=== PATIENT | female | born 1970 | race Caucasian/White ===

== ENCOUNTER 2018-11-30 20:29 | Inpatient (IN) | payer BC ==
[2018-11-30] MEDS ORDERED: MEPERIDINE HCL 50 MG/ML IV PRN (21:08)
[2018-11-30] MEDS ORDERED: ONDANSETRON 4 MG/2 ML VIAL IV PRN (21:08)
[2018-11-30 21:40] VITALS: BMI 43.9
[2018-11-30] MEDS: MEPERIDINE HCL 25 MG/0.5 ML IV PRN ×2 (21:43→22:36)
[2018-11-30 21:47] LABS: Absolute Lymphocytes (CBC) 2.5 K/uL (0.7-4.9); Hematocrit 41.3 % (36.0-45.0); Lymphocytes % 19.8 % (15.3-44.8); MPV 9.1 fL (7.6-11.3); RBC Red Blood Cell Count 4.32 M/uL (3.86-4.86)
[2018-11-30 22:20] LABS: Albumin 3.9 g/dL (3.4-5.0); Bilirubin Total 0.3 mg/dL (0.2-1.0); Magnesium 2.2 mg/dL (1.8-2.4); Protein, Total 7.6 g/dL (6.4-8.2); Thyroid Stimulating Hormone 0.92 uIU/mL (0.360-3.740)
[2018-11-30 22:38] LABS: Urine Appearance CLEAR; Urine Bilirubin NEGATIVE (NEG); Urine Blood NEGATIVE (NEG); Urine Color YELLOW; Urine Glucose NEGATIVE (NEG); Urine Protein TRACE (NEG); Urine Urobilinogen 0.2 mg/dL (0.2-1.0)
[2018-11-30] MEDS: ALPRAZOLAM 1 MG TABLET PO SCH (23:30)
[2018-11-30 23:50] LABS: Urine Culture Reflex Order NOT NEEDED
[2018-11-30 23:51] LABS: Urine Bacteria <20 /HPF (<20); Urine Mucus SLIGHT /HPF (NONE SEEN); Urine RBC <5 /HPF (NONE SEEN)
[2018-12-01] MEDS: LEVOTHYROXINE SOD 0.088 MG TAB PO SCH (05:07)
[2018-12-01] MEDS ORDERED: INFLUENZA VACCINE (for 3y+) 0.5 ML DOSE IMVAC ONE ×2 (08:00→18:00)
[2018-12-01] MEDS: ALPRAZOLAM 1 MG TABLET PO SCH ×3 (08:46→21:36)
[2018-12-01] MEDS: PARoxetine HCl 10 MG TAB PO SCH (08:46)
[2018-12-01] MEDS: NA CHLORIDE 0.9% 1,000 ML IV SCH (08:47)
[2018-12-01] MEDS: ENOXAPARIN 40 MG/0.4 ML SQ SCH (08:53)
[2018-12-01] MEDS: FENTANYL CITR 100 MCG/2 ML IV PRN ×4 (08:58→21:36)
[2018-12-01] MEDS ORDERED: predniSONE 20 MG TAB PO SCH (09:00)
--- NOTE | 2018-12-01 11:20 | RAD REPORT ---
EXAM DESCRIPTION: Chest Pa And Lat (2 Views) CLINICAL HISTORY: 48 years Female lumbar radiculopathy COMPARISON: None TECHNIQUE: Two view study of the chest was performed. Patient is mildly rotated to the right. FINDINGS: Cardiac size is within normal limits. Central vessels are not increased. Prominent right p aratracheal soft tissues likely related to patient positioning. No effusions bilaterally. Mild perihilar and infrahilar airspace opacities. No consolidation. No pneumothorax. IMPRESSION: No evidence for congestive heart failure. Suspected perihilar and infrahilar atelectatic change. Electronically signed by: Ines West MD 11/30/2018 10:49 PM CDT Due to temporary technical issues with the PACS/Fluency reporting system, reports are being signed by the in house radiologist as a courtesy to ensure prompt reporting. The interpreting radiologist is f ully responsible for the content of the report.
--- NOTE | 2018-12-01 11:21 | RAD REPORT ---
EXAM DESCRIPTION: Spine Lumbar W obliques CLINICAL HISTORY: Lower back pain. COMPARISON: None. FINDINGS: No acute compression fracture is seen. There is normal alignment without subluxation. The disc spaces are preserved. Mild facet arthropathy throughout the lower lumbar spine. No evidence of s pondylolysis on the oblique views. The sacroiliac joints are intact. IMPRESSION: Mild degenerative changes. No acute fracture. Electronically signed by: Nelson Mendoza MD 11/30/2018 10:49 PM CDT Due to temporary technical issues with the PACS/Fluency reporting system, reports are being signed by the in house radiologist as a courtesy to ensure prompt reporting. The interpreting radiologist is f ully responsible for the content of the report.
--- NOTE | 2018-12-01 11:35 | RAD REPORT ---
EXAM DESCRIPTION: CT - Abdomen Pelvis W Contrast - 12/01/2018 11:12 am CLINICAL HISTORY: Abdominal pain. COMPARISON: None. TECHNIQUE: Computed axial tomography of the abdomen and pelvis was obtained. 100 cc Isovue-300 is ad ministered intravenously. Oral contrast was given. All CT scans are performed using dose optimization technique as appropriate and may include automated exposure control or mA/KV adjustment according to patient size. FINDINGS: Fatty liver Spleen, pancreas, adrenals and right kidney appear unremarkable. A 3 millimeter nonobstructing left r enal calculus There is no evidence of diverticulitis . Normal appendix A right inguinal hernia is not noted Laxity of the right lateral abdominal wall Mild stranding within the left central mesentery of the lower abdomen 12 millimeter lucency left ilium IMPRESSION: Mild stranding within the left central mesentery of the lower abdomen probably a mesente ritis 12 millimeter lucency left ilium is nonspecific. Followup CT pelvis in 3 months would be helpful to a ssess stability
--- NOTE | 2018-12-01 15:52 | RAD REPORT ---
EXAM DESCRIPTION: MRI - Spine Lumbar W/Wo Cont - 12/01/2018 3:27 pm CLINICAL HISTORY: Bilateral leg edema COMPARISON: 2010 MRI TECHNIQUE: Sagittal T1, T2 and STIR weighted sequences were obtained. Axial T1 and T2 sequences were obtained through the lumbar disc levels. 20 cc MultiHance administered intravenously FINDINGS: L1-2, L2-3, L3-4,L4-5 and L5-S1 levels are unremarkable. Epidural lipomatosis involves sacral spinal canal 16 millimeter lesion left superolateral aspect T12 vertebral body. A 24 millimeter a lesion right sac ral ala S1. 23 millimeter lesion left ilium near the SI joint. These have low signal on T1 weighted s equences and high signal on IR sequences. They all enhance . Mild paraspinal enhancement T12 Spinal stenosis is not noted. IMPRESSION: Enhancing lesions involving T12, right sacrum and left ilium may represent metastases .
[2018-12-01] MEDS: METHYLPREDNISOLONE 40 MG INJ IV SCH (21:36)
[2018-12-01] MEDS: GABAPENTIN 300 MG CAP PO SCH (21:36)
[2018-12-02] MEDS: METHYLPREDNISOLONE 40 MG INJ IV SCH ×5 (00:20→23:39)
[2018-12-02] MEDS: NA CHLORIDE 0.9% 1,000 ML IV SCH ×3 (00:23→18:55)
--- NOTE | 2018-12-02 05:42 | HP ---
Date of Admission: 11/30/2018 Chief Complaint: Pain. History Of Present Illness: Ms. John is a 48-year-old female patient who came into see me on 11/29, with following problems. She reported that she spent about 9 hours in the car about 2 weeks a go when she took the road trip and subsequently she started to have this pain in her bilateral thighs going from her groin to the knee area. Pain is lot worse in her left thigh than the right thigh are a. No fall. No injury. Pain; she describes as constant pain, worse when she is lying down or stand ing and better when she walks. Pain is constant. Pain was not getting any better so she went to [facility] on 11/28/2018 and she had a CAT scan of her lumbar spine done at that particular [facility], which showed moderate to severe degenerative joint disease with left greater than right facet joint degenerative changes of L5-S1 and she brought those results. At that particular emergency [facility], she was given fentanyl, steroid, and she was discharged to go home with a prescription for tramado l and prednisone. Patient was taking her medication as prescribed, and she was not getting any julia r, so she came into see me on 11/29/2018. I reviewed those available test results and started her on gabapentin and requested x-ray of her hip, which was done and it came back showing mild degenerative joint disease. Tramadol was not helping her pain, so I prescribed her Tylenol with codeine and yest alcides she called and reported that even Tylenol with codeine is not helping her pain and she was in e xcruciating pain, so her came to office to discuss with me about further plan of treatment an d I recommended her to be admitted to the hospital, and she was admitted directly last night. I saw her this morning and when I saw her, she reported that as of yesterday morning, she is having lot mor e intense pain in her right groin area. She continues to have her left thigh pain, the way she was d escribing, but the right groin pain area has gotten lot worse than it had been and that was much carlo er concern to her as of yesterday morning. Her ability to ambulate is impaired as she reported that she has hard time raising her right leg up and that was noticeable when she was sitting at the [facility] e and when I requested her to lie down, she was not able to lift her right leg to lie down and I had to assist her. Denies any tingling, numbness of feet. Allergies: LEXAPRO CAUSING NAUSEA AND VOMITING AND ZITHROMAX CAUSING SHORTNESS OF BREATH. SULFA CAU SING SWELLING. Medications: Tylenol with codeine, alprazolam 1 mg 3 times a day, hydroxyzine 25 mg 3 times a day as needed, levothyroxine 88 mcg p.o. daily, paroxetine 20 mg p.o. daily, gabapentin, which was 300 mg o nce a day for 3 days and then 300 mg twice a day, which was prescribed on 11/29/2018. Review of Systems: Musculoskeletal: As mentioned above. All other systems reviewed and negative. Past Medical History: Significant for obstructive sleep apnea, hypothyroidism, hyperlipidemia, leg e johnna, and anxiety. Past Surgical History: . Family History: Father with heart disease and mother with thyroid disease and eczema. Social History: Positive for smoking. Use of alcohol negative. Physical Examination: Vital Signs: Temperature 97.5, pulse 79, respiratory rate 16, blood pressure 103/55, oxygen saturati on 94%. Height 5 feet 3 inches, weight 248 pounds. General: Awake, alert, oriented, not in distress. HEENT: Head atraumatic, normocephalic. Conjunctivae nonerythematous. Sclerae white. Mouth, no thr ush or edema noted. Ears/Nose, no mass, lesion, discharge noted. Neck: Supple. No JVD, lymph nodes, bruit, thyromegaly noted. Lungs: Bilateral good equal air entry. Clear to auscultation. No rhonchi. No rales. Heart: Normal heart sounds, no murmur or gallop. Abdomen: Soft, bowel sounds normal. No guarding, rigidity, tenderness, mass, hepatosplenomegaly, dis tention, or bruit noted. Extremities: No leg edema. No calf tenderness. Skin: No rash, ulcer, cellulitis. Lymphatics: No lymph node enlargement in neck, supraclavicular, infraclavicular region. Neurological: Patient was awake, alert, oriented x3. She was not comfortable because of the pain, a nd she was not able to raise her right lower extremity against gravity. She was able to flex her bot h lower extremity at hip and knee joint, but straight leg raising was not possible with right lower e xtremity. She also had some tenderness in the right groin area. There was no evidence of any swelli ng in the groin. No redness, no mass, no evidence of hernia and her entire physical exam today was d one in presence of her nurse this morning in the hospital room. Chest: Unremarkable. External Genitalia: Deferred. Rectal: Deferred. Laboratory Data: White count 12.5, which could be very well due to her taking oral prednisone which she is taking 40 mg daily as prescribed from emergency room. Hemoglobin 14, platelets 285. Sediment ation rate 25. Sodium 142, potassium 4, chloride 105, bicarb 29, BUN 11, creatinine 0.93, glucose 84 . Liver function tests unremarkable. Procalcitonin less than 0.05, TSH 0.92. Urinalysis unremarkab le. Impression: 1.Lumbar radiculopathy. 2.Anxiety. 3.Hypothyroidism. 4.Obstructive sleep apnea. Plan: Admit patient to hospital for further evaluation and management of this problem. The patient is appropriate for inpatient and is expected to spend 2 midnights in hospital. After I saw her CAT s can of the abdomen with contrast was done and MRI of the lumbar spine with contrast was done. Result s reviewed and I did go back to hospital this evening to explain details about the test results to e patient. Patient was started on IV Demerol last night after she was admitted and Demerol did not h elp her, so when I saw her this morning, I discontinued Demerol and started her on IV fentanyl. This evening when I went back to see her, she reported that fentanyl is helping better than Demerol. She still has significant pain, but it is better than earlier this morning when I saw her. I did explai n to her about CAT scan of the abdomen findings. Clinically, she does not have any symptoms indicati ng any kind of mesenteric infection as reported on the CAT scan. Her MRI results reviewed we were co ncerned about metastatic bone lesions as reported in MRI and those details were discussed with her. The patient does not have any history of any malignancy, so I have informed her that upon discharge f [facility] the hospital, I would like for her to go to [facility] for further evaluation and man agement of this problem, and she is agreeable to do so in my office, we will refer her on outpatient basis. Her right groin and right leg pain could be very well muscular in nature because of her lumba r radiculopathy pain in the left leg that she might have twisted it in a way to cause this pain and d iscomfort and we did talk about this evening. I will go ahead and give her IV Solu-Medrol and discon tinue her oral prednisone. I will also start her back on her gabapentin that she was taking at home, and I will see her tomorrow for followup. REYNALDO/MIKAYLA Voice ID: [id number]
[2018-12-02] MEDS: LEVOTHYROXINE SOD 0.088 MG TAB PO SCH (06:27)
[2018-12-02] MEDS: ENOXAPARIN 40 MG/0.4 ML SQ SCH (08:36)
[2018-12-02] MEDS: ALPRAZOLAM 1 MG TABLET PO SCH ×3 (08:37→21:18)
[2018-12-02] MEDS: GABAPENTIN 300 MG CAP PO SCH ×2 (08:37→23:40)
[2018-12-02] MEDS: PARoxetine HCl 10 MG TAB PO SCH (08:38)
[2018-12-02] MEDS: FENTANYL CITR 100 MCG/2 ML IV PRN ×3 (13:23→23:40)
[2018-12-02 14:43] VITALS: O2SAT 95
--- NOTE | 2018-12-03 00:47 | PN ---
Date of Progress Note: 12/02/2018 Subjective: Patient was seen this morning for followup. She was sitting in the chair, appeared more comfortable than yesterday. She reported that her leg pain is better, especially the right leg pain . Right groin and right thigh pain has improved compared to yesterday evening when I saw her with co mbination of IV pain medication and IV steroid. She continues to have her left thigh pain, but that is better as well. Objective: Vital Signs: Reviewed. HEENT: Unremarkable. Lungs: Clear to auscultation. Heart: Sounds normal. Abdomen: Soft. Bowel sounds normal. No guarding, rigidity, tenderness, or distention. Extremities: No leg edema. Impression: 1.Lumbar radiculopathy. 2.Rule out metastatic cancer. 3.Anxiety. 4.Hypothyroidism. Plan: We will go ahead and continue current IV pain medications. We will see her tomorrow for follo wup and possible discharge to go home tomorrow depending on her condition. Details were discussed wi th her. REYNALDO/MODL Voice ID: [id number] Report ID: [id number]
[2018-12-03] MEDS: FENTANYL CITR 100 MCG/2 ML IV PRN ×3 (06:08→17:12)
[2018-12-03] MEDS: LEVOTHYROXINE SOD 0.088 MG TAB PO SCH (06:09)
[2018-12-03] MEDS: METHYLPREDNISOLONE 40 MG INJ IV SCH (06:09)
[2018-12-03] MEDS: HYDROCODONE/APAP 7.5/325 MG TAB PO SCH ×3 (08:48→15:36)
[2018-12-03] MEDS: GABAPENTIN 300 MG CAP PO SCH (08:48)
[2018-12-03] MEDS: ENOXAPARIN 40 MG/0.4 ML SQ SCH (08:48)
[2018-12-03] MEDS: ALPRAZOLAM 1 MG TABLET PO SCH ×2 (08:48→15:27)
[2018-12-03] MEDS: PARoxetine HCl 10 MG TAB PO SCH (08:49)
[2018-12-03] MEDS ORDERED: predniSONE 20 MG TAB PO SCH (09:00)
[2018-12-03] MEDS ORDERED: IBUPROFEN 400 MG TAB PO ONE (11:22)
[2018-12-03] MEDS: NA CHLORIDE 0.9% 1,000 ML IV SCH ×2 (13:20)
--- NOTE | 2018-12-03 14:23 | RAD REPORT ---
EXAM DESCRIPTION: RAD - Femur Left - 12/03/2018 9:36 am CLINICAL HISTORY: Left leg pain. FINDINGS: . Periosteal deposition is present about portions of the proximal and mid left femur. This is nonspecific but can be related pathology within the adjacent muscle or bone. A vague 2 centimeter lucency is present within the distal femur which may represent a metastasis. The bones are osteoporotic
--- NOTE | 2018-12-03 14:24 | RAD REPORT ---
EXAM DESCRIPTION: RAD - Knee Left 3 View - 12/03/2018 9:36 am CLINICAL HISTORY: Left knee pain FINDINGS: . Periosteal deposition is present about portions of the proximal and mid left femur. This is nonspecific but can be related pathology within the adjacent muscle or bone. A vague 2 centimeter lucency is present within the distal femur which may represent a metastasis. The bones are osteoporotic
--- NOTE | 2018-12-03 14:55 | RAD REPORT ---
EXAM DESCRIPTION: NM - Bone Imaging Whole Body - 12/03/2018 12:53 pm CLINICAL HISTORY: Abnormal radiologic exam. Leg pain COMPARISON: MRI lumbar spine December 01, 2018 TECHNIQUE: Approximately 25mCi Tc MDPwas administered intravenously. Anterior and posterior whole body images were obtained. FINDINGS: Increased radiotracer uptake involves the distal left femur. No abnormal radiotracer activity is seen within the T12, right sacrum or left ilium. Increased uptake involves the proximal humeri bilaterally IMPRESSION: Increased radiotracer uptake involving the distal left femur may represent a metastasis No abnormal radiotracer activity is visualized within T12, right sacrum and left ilium. Given the abn ormal enhancement seen on MRI these are suspicious for additional metastases or myeloma Increased uptake involves the proximal humeri bilaterally. Dedicated plain films of the shoulders rec ommended
[2018-12-03 16:35] VITALS: BP 118/63; TEMP 97.9
--- NOTE | 2018-12-04 04:26 | DS ---
Date of Discharge: 12/03/2018 Disposition: Discharged to go home. Physical Examination: HEENT: Unremarkable. Lungs: Clear to auscultation. Heart: Sounds normal. Abdomen: Soft. Bowel sounds normal. No guarding, rigidity, tenderness, or distention. Extremities: No leg edema. Discharge Medications And Instructions: 1.Continue all prior home medication, except do not take any tramadol or Tylenol with Codeine. 2.Finish taking the prednisone as prescribed prior to this admission. 3.Take gabapentin as prescribed prior to this admission. 4.Take [id number] medications for constipation. a.Senokot-S 2 tablets by mouth 2 times a day. b.MiraLAX 17 g powder mixed with 8-ounce water and drink it daily as needed for constipation. 5.Take Valier 7.5 mg 1 tablet by mouth every 6 hours for pain. 6.Take [id number]-xri-[id number] Motrin 200 mg, take 2 to 3 tablets with food 3 times a day. 7.Follow up at my office in 2 weeks. 8.My office will schedule appointment for her to go to [facility] as per my discussion with her. Laboratory And Investigation Done During This Hospitalization: White count 12.5, hemoglobin 14, plat elets 285. Sedimentation rate 25, elevated white count likely due to prednisone as patient was takin g that prior to this admission. Chemistry was unremarkable, except globulin 3.7 with normal range on globulin 2.3 to 3.5. Procalcitonin negative. TSH normal. Urinalysis negative. Chest x-ray, no ac mami cardiopulmonary changes. Suspected perihilar or infrahilar atelectatic changes. Lumbar spine x- ray, mild degenerative changes. No acute fracture. Lumbar spine MRI shows evidence of a 16 mm lesio n in left superolateral aspect of T12 vertebral body and 24 mm lesion right sacral ala at S1 level an d 23 mm lesion in left ilium near SI joint. CAT scan of the abdomen and pelvis was negative for any acute changes. No acute intraabdominal changes. Known obstructing 3 mm left renal calculi, 12 mm alba cency in left ilium was noted on that and mild stranding within left central mesentery may be due to mesentery inflammation. Femur and knee x-ray done today shows a small area of late lucency in the di stal femur and bone scan shows increased uptake in distal femur and slightly increased uptake involvi ng proximal humerus both sides. The area of abnormality noted on MRI of the lumbar spine did not feroz w any increased uptake on bone scan and all those details were discussed with radiologist as well. Hospital Course: A 48-year-old female patient admitted to the hospital with severe pain in her leg. Please see dictated H and P for more information. Patient was admitted to the hospital with lumbar radiculopathy and she mostly had pain in her left leg, but on the day of admission, she also had inte nse pain in her right groin area. This pain from right groin actually has resolved completely during this hospitalization and she continued to have pain in her left leg. Most of the pain is in the low er half to lower one-third of the left anterior thigh. No fall. No injury. Workup was done during this hospital admission as outlined above and we were concerned about metastatic cancer unknown prima ry at this point. I have discussed with her and her about all those test results and details and we have recommended her to have followup on outpatient basis at [facility] for further evaluati on and management of this problem. Patient understands and agrees with the recommendation and my off ice will initiate the appointment process for her. All the test results were discussed with her. Al l of her questions were answered. Her pain was very intense during this hospitalization, required mu ltiple doses of IV pain medication. She did not respond to Demerol, but responded well to IV fentany l and she was also given IV steroid. As of today, we have changed it to oral steroid. As of today, we started her on hydrocodone and gave her 1 dose of ibuprofen 600 mg and when I talked to her prior to discharge that was the best pain relief that she had since her admission. Final Diagnoses: 1.Metastatic cancer, unknown primary. 2.Anxiety. 3.Hypothyroidism. 4.Obstructive sleep apnea. REYNALDO/MODL Voice ID: [id number] Report ID: [id number]
== END 2018-12-03 18:25 | disposition home or self-care (01) | DRG 544 ==
LOC: 4TH 20:29
PROVIDERS: ADMIT Internal Medicine; ATTEND Internal Medicine
DX: C79.51 Secondary malignant neoplasm of bone (principal); M47.9 Spondylosis, unspecified; E03.9 Hypothyroidism, unspecified; G47.33 Obstructive sleep apnea (adult) (pediatric); F41.9 Anxiety disorder, unspecified
CPT/HCPCS: 36415; 71046; 72110; 72158; 74177; 78306; 80053; 81001; 83735; 84145; 84443; 85025; 85652; 90471; A9503; A9577; J1650; J2175; J2920; J3010; J7030; J7512; Q2035; Q9967

== ENCOUNTER 2019-02-22 18:14 | Emergency (ER) | payer BC ==
--- OUTSIDE RECORDS SUMMARY | 2019-02-22 18:17 | XMS REPORT ---
:1970 [facility] Address [address] [place] [address] Care Team Providers Name Role Phone SHAAN GUEVARA Unavailable Unavailable Problems This patient has no known problems. Allergies, Adverse Reactions, Alerts This patient has no known allergies or adverse reactions. Medications This patient has no known medications. Results Test Description Test Time Test Comments Text Results Atomic Results Result Comments JERROD KRISHNAN, 2018-12-20 17:49:00 Addendum BeginsREPORT [facility], WITH STATUS:A MRI of the left hip with and without contrast TECHNIQUE: Multiplanar multisequence MRI of the left hip was performed with and without intravenous gadolinium administration. Signed: Javid Crabtree Verified Date/Time: 12/20/2018 17:49:57 Reading Location: [address] Ortho Consult Reading RoomAddendum EndsFINAL REPORT MRI left hip without contrast. INDICATION: Lower leg pain, stress fracture suspected, initial exam COMPARISON: CT dated December 13, 2018 TECHNIQUE: Multiplanar multisequence MRI examination of the left hip was performed without intravenous gadolinium. FINDINGS: Multiple T1 hypointense, T2 hyperintense and enhancing lesions are seen in the bony pelvis, and imaged portion of both femurs, compatible with malignancy. One of the larger lesions is located in the right femoral head anteriorly. No acute fracture or dislocation is identified. No displaced labral tear is seen. There is trace right-sided hip joint effusion. SI joints are unremarkable. Symphysis pubis is congruent. The iliopsoas, hamstring and gluteal tendons are intact. Within the pelvis, bladder, uterus and adnexa appear unremarkable. No mass or lymphadenopathy identified. IMPRESSION: Multifocal marrow replacing, enhancing lesions in the bony pelvis, and bilateral femurs, differential considerations include metastasis, lymphoma or myeloma. Signed: Javid Crabtreedaphneyort Verified Date/Time: 12/14/2018 16:21:36 Reading Location: [facility] B1 [id number] Ortho Consult Reading Room , KNEE, 3 VIEWS, 2018-12-15 14:25:00 Reason for FINAL REPORT PATIENT ID: LEFT exam:->left knee [id number] TECHNIQUE: painShould this be Four views of the left performed at the knee and two views of bedside?->No the right tibia and fibula HISTORY: left knee pain. COMPARISON: None. FINDINGS:No acute fractures nor dislocations. Joint spaces are within normal limits.Enthesopathy at the the quadriceps insertion, and partially visualized enthesopathy at the heel and talus. IMPRESSION:No acute osseous abnormalities.Consider bone scan if there is a desire to identify bone lesions. Signed: Jean-Claude Quiroz MDRdaphneyort Verified Date/Time: 12/15/2018 14:25:29 Reading Location: [facility] Radiology Reading Room , LEG, TIBIA 2018-12-15 14:25:00 Reason for FINAL REPORT PATIENT ID: exam:->leg [id number] TECHNIQUE: painShould this be Four views of the left performed at the knee and two views of bedside?->No the right tibia and fibula HISTORY: left knee pain. COMPARISON: None. FINDINGS:No acute fractures nor dislocations. Joint spaces are within normal limits.Enthesopathy at the the quadriceps insertion, and partially visualized enthesopathy at the heel and talus. IMPRESSION:No acute osseous abnormalities.Consider bone scan if there is a desire to identify bone lesions. Signed: Jean-Claude Quiroz MDRdaphneyort Verified Date/Time: 12/15/2018 14:25:29 Reading Location: [facility] Radiology Reading Room , EXTREMITY, LOWER 2018-12-15 07:31:00 FINAL REPORT PATIENT ID: WITHOUT CONTRAST, [id number] CT pelvis RIGHT without contrast; CT right femur without contrast HISTORY: Pathologic fracture, multiple lytic bone lesions COMPARISON: CT pelvis 12/13/2018 Technique: serial axial imaging was performed without intravenous contrast as per departmental protocol. Multiplanar images are reconstructed and reviewed when indicated. This CT examination is performed using one or more of the following dose reduction techniques: Automated exposure control, adjustment of the mA and /or kV according to patient size, and/or use of iterative reconstruction technique. FINDINGS: The visualized bowel loops within the pelvis appear normal in caliber. Unremarkable appearance of the uterus and ovaries. The urinary bladder demonstrates no definite wall thickening or intraluminal mass. No pelvic free fluid, lymphadenopathy, or hematoma is seen. Multifocal lytic bone lesions are again seen involving the right femoral head, right sacrum, and left iliac wing, unchanged in appearance. Lesions within the right femoral head and left iliac wing are associated with focal cortical erosion. No pathologic fracture is seen. There is a subtle lucent lesion involving the left initial tuberosity measuring 8 mm in size which is retrospectively unchanged from the study of 12/13/2018. No additional lytic lesion is seen within the remaining portions of the right femur. There is mild stranding of subcutaneous fat within the right thigh, without definitive soft tissue mass or fluid collection. IMPRESSION: Multifocal lytic bone lesions within the pelvis, without significant interval change from yesterday's study. Signed: Simone Garcia MDReport Verified Date/Time: 12/15/2018 07:31:19 Reading Location: [facility] Diagnostic Imaging Reading Room - [place] [address] , PELVIS, WO 2018-12-15 07:31:00 RIGHT FEMUR FINAL REPORT PATIENT ID: CONTRAST INCLUDING HIP AND [id number] CT pelvis ALL THE WAY TO THE without contrast; CT KNEE right femur without contrast HISTORY: Pathologic fracture, multiple lytic bone lesions COMPARISON: CT pelvis 12/13/2018 Technique: serial axial imaging was performed without intravenous contrast as per departmental protocol. Multiplanar images are reconstructed and reviewed when indicated. This CT examination is performed using one or more of the following dose reduction techniques: Automated exposure control, adjustment of the mA and /or kV according to patient size, and/or use of iterative reconstruction technique. FINDINGS: The visualized bowel loops within the pelvis appear normal in caliber. Unremarkable appearance of the uterus and ovaries. The urinary bladder demonstrates no definite wall thickening or intraluminal mass. No pelvic free fluid, lymphadenopathy, or hematoma is seen. Multifocal lytic bone lesions are again seen involving the right femoral head, right sacrum, and left iliac wing, unchanged in appearance. Lesions within the right femoral head and left iliac wing are associated with focal cortical erosion. No pathologic fracture is seen. There is a subtle lucent lesion involving the left initial tuberosity measuring 8 mm in size which is retrospectively unchanged from the study of 12/13/2018. No additional lytic lesion is seen within the remaining portions of the right femur. There is mild stranding of subcutaneous fat within the right thigh, without definitive soft tissue mass or fluid collection. IMPRESSION: Multifocal lytic bone lesions within the pelvis, without significant interval change from yesterday's study. Signed: Simone Garcia MDReport Verified Date/Time: 12/15/2018 07:31:19 Reading Location: [facility] Diagnostic Imaging Reading Room - [place] [address] C METABOLIC PANEL 2018-12-15 05:42:00 Test Item Value Reference Range Comments SODIUM (BEAKER) (test 140 meq/L 135-148 abrb=294) POTASSIUM (BEAKER) (test 4.4 meq/L 3.6-5.5 gzmh=837) CHLORIDE (BEAKER) (test 101 meq/L 98-106 kqvh=828) CO2 (BEAKER) (test igtv=676) 27 meq/L 20-29 BLOOD UREA NITROGEN (BEAKER) 16 mg/dL 10-26 (test dlvw=752) CREATININE (BEAKER) (test 0.77 mg/dL 0.50-1.20 pwuu=746) GLUCOSE RANDOM (BEAKER) 141 mg/dL 70-110 (test uzdp=972) CALCIUM (BEAKER) (test 9.5 mg/dL 8.5-10.5 nrdr=222) EGFR (BEAKER) (test 79 mL/min/1.73 sq m ESTIMATED GFR IS NOT cndg=8315) ACCURATE CREATININE CLEARANCE IN PREDICTING GLOMERULAR FILTRATION RATE. ESTIMATED GFR IS NOT APPLICABLE FOR DIALYSIS PATIENTS. CBC W/PLT COUNT & AUTO [id number] 05:42:00 Test Item Value Reference Range Comments WHITE BLOOD CELL COUNT (BEAKER) (test yxqd=439) 14.3 K/ L 4.0-10.0 RED BLOOD CELL COUNT (BEAKER) (test ezrt=607) 4.38 M/ L 4.00-5.00 HEMOGLOBIN (BEAKER) (test gqjx=584) 14.2 GM/DL 12.0-15.5 HEMATOCRIT (BEAKER) (test qyjs=991) 41.6 % 36.0-46.0 MEAN CORPUSCULAR VOLUME (BEAKER) (test hfyz=553) 95.0 fL 82.0-99.0 MEAN CORPUSCULAR HEMOGLOBIN (BEAKER) (test 32.4 pg 27.0-33.0 muar=764) MEAN CORPUSCULAR HEMOGLOBIN CONC (BEAKER) (test 34.1 GM/DL 32.0-36.0 foci=510) RED CELL DISTRIBUTION WIDTH (BEAKER) (test 13.3 % 12.0-15.0 rurt=064) PLATELET COUNT (BEAKER) (test newl=060) 251 K/CU MM 150-430 MEAN PLATELET VOLUME (BEAKER) (test eqvh=655) 10.6 fL 6.0-11.5 NUCLEATED RED BLOOD CELLS (BEAKER) (test 0 /100 WBC 0-0 khxs=757) NEUTROPHILS RELATIVE PERCENT (BEAKER) (test 86 % liac=678) LYMPHOCYTES RELATIVE PERCENT (BEAKER) (test 9 % ogdj=526) MONOCYTES RELATIVE PERCENT (BEAKER) (test 4 % bnpm=569) EOSINOPHILS RELATIVE PERCENT (BEAKER) (test 0 % vsbq=014) BASOPHILS RELATIVE PERCENT (BEAKER) (test 0 % aomr=454) NEUTROPHILS ABSOLUTE COUNT (BEAKER) (test 12.30 K/ L 1.80-8.00 zrre=552) LYMPHOCYTES ABSOLUTE COUNT (BEAKER) (test 1.26 K/ L 1.48-4.50 dncr=672) MONOCYTES ABSOLUTE COUNT (BEAKER) (test 0.62 K/ L 0.00-1.30 gauf=431) EOSINOPHILS ABSOLUTE COUNT (BEAKER) (test 0.01 K/ L 0.00-0.50 olrg=021) BASOPHILS ABSOLUTE COUNT (BEAKER) (test 0.01 K/ L 0.00-0.20 ywrv=163) IMMATURE GRANULOCYTES-RELATIVE PERCENT (BEAKER) 1 % 0-0 (test krzn=3813) PROTHROMBIN [id number] 05:36:00 Test Item Value Reference Range Comments PROTIME (BEAKER) (test evhb=298) 10.5 sec 9.3-12.0 INR (BEAKER) (test vypo=663) 1.0 <=5.9 RECOMMENDED COUMADIN/WARFARIN INR THERAPY RANGESSTANDARD DOSE: 2.0 - 3.0 Includes: PROPHYLAXIS forvenous thrombosis, systemic embolization; TREATMENT for venous thrombosis and/or pulmonary embolus.HIGH RISK: Target INR is 2.5-3.5 for patients with mechanical heart valves.Final Information (Auto Output)Final Information (Auto Output)[id number] 05:36:00 Test Item Value Reference Range Comments PARTIAL THROMBOPLASTIN TIME (BEAKER) (test 26.0 sec 23.0-35.0 aiql=301) Final Information (Auto Output)[id number] 09:07:00 Test Item Value Reference Range Comments PROTIME (BEAKER) (test jmci=992) 10.3 sec 9.3-12.0 INR (BEAKER) (test chrx=062) 0.9 <=5.9 PARTIAL THROMBOPLASTIN TIME (BEAKER) (test 24.5 sec 23.0-35.0 vnju=435) RECOMMENDED COUMADIN/WARFARIN INR THERAPY RANGESSTANDARD DOSE: 2.0 - 3.0 Includes: PROPHYLAXIS forvenous thrombosis, systemic embolization; TREATMENT for venous thrombosis and/or pulmonary embolus.HIGH RISK: Target INR is 2.5-3.5 for patients with mechanical heart valves.Final Information (Auto Output)Final Information (Auto Output)Final Information (Auto Output)CT, EXTREMITY, LOWER, WITH CONTRAST, [id number] 07:31:00FINAL REPORT CT pelvis with contrast; CT left thigh with contrast HISTORY: Pain, lytic lesion COMPARISON: Pelvis and left femur x-rays of same date Technique: serial axial imaging was performed following the administration of intravenous contrast as per departmental protocol. Multiplanar images are reconstructed and reviewed when indicated. This CT examination is performed using one or more of the following dose reduction techniques: Automated exposure control, adjustment of the mA and /or kV according to patient size, and/or use of iterative reconstruction technique. FINDINGS: The visualized bowel loops appear normal in caliber. Unremarkable appearance of the uterus and adnexa. The urinary bladder demonstrates no definite wall thickening or intraluminal mass. No pelvic lymphadenopathy, hematoma, or free fluid is seen. Within the pelvis, lytic lesions are noted involving the left iliac wing, right sacrum, and anterior aspect of right femoral head. The largest of these lesions measures 2.5 cm in size is seen within the anterior right femoral head. Lesions within the left iliac wing and right femoral head are associated with cortical indistinctness. The right femoral head lesion is at risk for pathologic fracture. Within the left thigh and visualized portions of the left leg, there is mild superficial soft tissue edema, without organized fluid collection. Within the distal left femoral diaphysis, there is an ill-defined lytic lesion measuring approximately 2.1 cm insize. This is associated with a focus of cortical breakthrough and thin periosteal reaction. No additional lytic or blastic lesion is identified. IMPRESSION: Multifocal lytic lesions which involve the right femoral head, right sacrum, left iliac wing, and left distal femoral diaphysis. The lesions within the right femoral head and left distal femoral diaphysis are at risk for pathologic fracture. Overall, the findings are concerning for myeloma, metastasis, or lymphoma. Signed: Simone Garcia MDReport Verified Date/Time: 12/14/2018 07:31:44 Reading Location: [facility] Diagnostic Imaging Reading Room - [place] [id number] 07 :31 AMCT, PELVIS, W [id number] 07:31:00FINAL REPORT CT pelvis with contrast; CT left thigh with contrast HISTORY: Pain, lytic lesion COMPARISON: Pelvis and left femur x-rays of same date Technique: serial axial imaging was performed following the administration of intravenous contrast as per departmental protocol. Multiplanar images are reconstructed and reviewed when indicated. This CT examination is performed using one or more of the following dose reduction techniques: Automated exposure control, adjustment of the mA and /or kV according to patient size, and/or use of iterative reconstruction technique. FINDINGS: The visualized bowel loops appear normal in caliber. Unremarkable appearance of the uterus and adnexa. The urinary bladder demonstrates no definite wall thickening or intraluminal mass. No pelvic lymphadenopathy, hematoma, or free fluid is seen. Within the pelvis, lytic lesions are noted involving the left iliac wing, right sacrum, and anterior aspect of right femoral head. The largest of these lesions measures 2.5 cm in size is seen within the anterior right femoral head. Lesions within the left iliac wing and right femoral head are associated with cortical indistinctness. The right femoral head lesion is at risk for pathologic fracture. Within the left thigh and visualized portions of the left leg, there is mild superficial soft tissue edema, without organized fluid collection. Within the distal left femoral diaphysis, there is an ill-defined lytic lesion measuring approximately 2.1 cm insize. This is associated with a focus of cortical breakthrough and thin periosteal reaction. No additional lytic or blastic lesion is identified. IMPRESSION: Multifocal lytic lesions which involve the right femoral head, right sacrum, left iliac wing, and left distal femoral diaphysis. The lesions within the right femoral head and left distal femoral diaphysis are at risk for pathologic fracture. Overall, the findings are concerning for myeloma, metastasis, or lymphoma. Signed: Simone Garcia Verified Date/Time: 12/14/2018 07:31:44 Reading Location: [facility] Diagnostic Imaging Reading Room -[place] [address] RAD, PELVIS, 1 OR 2 [id number] 16: 05:00Reason for exam:->painFINAL REPORT INDICATION: Pelvis and left femur pain. COMPARISON: None. TECHNIQUE: Pelvis radiograph one view.Left femur radiograph two views. FINDINGS / IMPRESSION:There is an oldfracture or hyperostosis of the superolateral left acetabulum. There is no evidence of an acute fracture. Degenerative spurring at the greater trochanter is noted. Contrast in the ureters and bladder is noted. Signed: Sruthi Arango Verified Date/Time: 12/13/2018 16:05:09 Reading Location: [facility] Mammo Reading Room RAD, FEMUR, MIN. 2 VIEWS, [id number] 16:05: 00Reason for exam:->left leg painFINAL REPORT INDICATION:Pelvis and left femur pain. COMPARISON: None. TECHNIQUE: Pelvis radiograph one view.Left femur radiograph two views. FINDINGS / IMPRESSION: There is an oldfracture or hyperostosis of the superolateral left acetabulum. There is no evidence of an acute fracture. Degenerative spurring at the greater trochanter is noted. Contrast in the ureters and bladder is noted. Signed: Sruthi Arango MDReport Verified Date/Time: 12/13/2018 16:05:09 Reading Location:[facility] METABOLIC [id number] 05:58:00 Test Item Value Reference Range Comments SODIUM (BEAKER) (test 141 meq/L 135-148 pzkw=680) POTASSIUM (BEAKER) (test 4.0 meq/L 3.6-5.5 npbe=779) CHLORIDE (BEAKER) (test 104 meq/L 98-106 fgut=016) CO2 (BEAKER) (test 26 meq/L 20-29 fkhl=257) BLOOD UREA NITROGEN 19 mg/dL 10-26 (BEAKER) (test xtrn=114) CREATININE (BEAKER) (test 0.81 mg/dL 0.50-1.20 oepy=086) GLUCOSE RANDOM (BEAKER) 90 mg/dL 70-110 (test zxmh=919) CALCIUM (BEAKER) (test 9.4 mg/dL 8.5-10.5 tnss=343) EGFR (BEAKER) (test 75 mL/min/1.73 sq m ESTIMATED GFR IS NOT qmzt=9006) ACCURATE CREATININE CLEARANCE IN PREDICTING GLOMERULAR FILTRATION RATE. ESTIMATED GFR IS NOT APPLICABLE FOR DIALYSIS PATIENTS. CBC W/PLT COUNT & AUTO [id number] 05:35:00 Test Item Value Reference Range Comments WHITE BLOOD CELL COUNT (BEAKER) (test ezvg=709) 14.9 K/ L 4.0-10.0 RED BLOOD CELL COUNT (BEAKER) (test lowd=621) 4.15 M/ L 4.00-5.00 HEMOGLOBIN (BEAKER) (test fklg=694) 13.4 GM/DL 12.0-15.5 HEMATOCRIT (BEAKER) (test ewfz=718) 40.0 % 36.0-46.0 MEAN CORPUSCULAR VOLUME (BEAKER) (test smzu=117) 96.4 fL 82.0-99.0 MEAN CORPUSCULAR HEMOGLOBIN (BEAKER) (test 32.3 pg 27.0-33.0 jtjy=978) MEAN CORPUSCULAR HEMOGLOBIN CONC (BEAKER) (test 33.5 GM/DL 32.0-36.0 zulr=237) RED CELL DISTRIBUTION WIDTH (BEAKER) (test 13.5 % 12.0-15.0 dahd=547) PLATELET COUNT (BEAKER) (test kkgo=373) 275 K/CU MM 150-430 MEAN PLATELET VOLUME (BEAKER) (test ooar=462) 10.5 fL 6.0-11.5 NUCLEATED RED BLOOD CELLS (BEAKER) (test 0 /100 WBC 0-0 bugc=063) NEUTROPHILS RELATIVE PERCENT (BEAKER) (test 67 % dhqq=540) LYMPHOCYTES RELATIVE PERCENT (BEAKER) (test 24 % vmvd=280) MONOCYTES RELATIVE PERCENT (BEAKER) (test 8 % huie=948) EOSINOPHILS RELATIVE PERCENT (BEAKER) (test 1 % lbxu=318) BASOPHILS RELATIVE PERCENT (BEAKER) (test 0 % iyyw=931) NEUTROPHILS ABSOLUTE COUNT (BEAKER) (test 9.94 K/ L 1.80-8.00 nzra=104) LYMPHOCYTES ABSOLUTE COUNT (BEAKER) (test 3.63 K/ L 1.48-4.50 xjsh=132) MONOCYTES ABSOLUTE COUNT (BEAKER) (test 1.16 K/ L 0.00-1.30 prdh=952) EOSINOPHILS ABSOLUTE COUNT (BEAKER) (test 0.07 K/ L 0.00-0.50 ykfe=846) BASOPHILS ABSOLUTE COUNT (BEAKER) (test 0.03 K/ L 0.00-0.20 tbex=649) IMMATURE GRANULOCYTES-RELATIVE PERCENT (BEAKER) 1 % 0-0 (test pisj=8004) SCREEN, [id number] 16:05:00 Test Item Value Reference Range Comments TEST URINE (BEAKER) (test vobg=457) Negative COMPREHENSIVE METABOLIC [id number] 11:42:00 Test Item Value Reference Range Comments TOTAL PROTEIN (BEAKER) 7.7 gm/dL 6.0-8.5 (test bnda=307) ALBUMIN (BEAKER) (test 4.5 g/dL 3.5-5.0 yfkc=2327) ALKALINE PHOSPHATASE 79 U/L 30-115 (BEAKER) (test qfvv=886) BILIRUBIN TOTAL (BEAKER) 0.4 mg/dL 0.1-1.2 (test epmw=971) SODIUM (BEAKER) (test 142 meq/L 135-148 fhqx=258) POTASSIUM (BEAKER) (test 4.9 meq/L 3.6-5.5 zvhm=051) CHLORIDE (BEAKER) (test 102 meq/L 98-106 juqa=434) CO2 (BEAKER) (test 29 meq/L 20-29 dlxb=616) BLOOD UREA NITROGEN 14 mg/dL 10-26 (BEAKER) (test twry=971) CREATININE (BEAKER) (test 0.88 mg/dL 0.50-1.20 dvqj=329) GLUCOSE RANDOM (BEAKER) 125 mg/dL 70-110 (test jnjy=246) CALCIUM (BEAKER) (test 10.4 mg/dL 8.5-10.5 bvyb=072) AST (SGOT) (BEAKER) (test 18 U/L 5-40 mqre=709) ALT (SGPT) (BEAKER) (test 45 U/L 5-50 dmpj=207) EGFR (BEAKER) (test 68 mL/min/1.73 sq m ESTIMATED GFR IS NOT tsgr=6496) ACCURATE CREATININE CLEARANCE IN PREDICTING GLOMERULAR FILTRATION RATE. ESTIMATED GFR IS NOT APPLICABLE FOR DIALYSIS PATIENTS. CREATINE KINASE (CK)2018-12-12 11:42:00 Test Item Value Reference Range Comments CREATINE KINASE TOTAL (BEAKER) (test uxvm=505) 37 U/L 25-235 CBC W/PLT COUNT & AUTO [id number] 11:25:00 Test Item Value Reference Range Comments WHITE BLOOD CELL COUNT (BEAKER) (test arce=385) 15.7 K/ L 4.0-10.0 RED BLOOD CELL COUNT (BEAKER) (test bseo=513) 4.58 M/ L 4.00-5.00 HEMOGLOBIN (BEAKER) (test smwa=888) 14.9 GM/DL 12.0-15.5 HEMATOCRIT (BEAKER) (test swcz=296) 43.8 % 36.0-46.0 MEAN CORPUSCULAR VOLUME (BEAKER) (test mkcc=275) 95.6 fL 82.0-99.0 MEAN CORPUSCULAR HEMOGLOBIN (BEAKER) (test 32.5 pg 27.0-33.0 xalq=481) MEAN CORPUSCULAR HEMOGLOBIN CONC (BEAKER) (test 34.0 GM/DL 32.0-36.0 ahul=502) RED CELL DISTRIBUTION WIDTH (BEAKER) (test 13.4 % 12.0-15.0 phkq=862) PLATELET COUNT (BEAKER) (test mdwg=666) 273 K/CU MM 150-430 MEAN PLATELET VOLUME (BEAKER) (test vjsk=471) 10.2 fL 6.0-11.5 NUCLEATED RED BLOOD CELLS (BEAKER) (test 0 /100 WBC 0-0 zstr=488) NEUTROPHILS RELATIVE PERCENT (BEAKER) (test 88 % ifwb=894) LYMPHOCYTES RELATIVE PERCENT (BEAKER) (test 7 % duuq=905) MONOCYTES RELATIVE PERCENT (BEAKER) (test 3 % tsjt=648) EOSINOPHILS RELATIVE PERCENT (BEAKER) (test 0 % piqr=201) BASOPHILS RELATIVE PERCENT (BEAKER) (test 0 % byyp=917) NEUTROPHILS ABSOLUTE COUNT (BEAKER) (test 13.83 K/ L 1.80-8.00 eoap=825) LYMPHOCYTES ABSOLUTE COUNT (BEAKER) (test 1.13 K/ L 1.48-4.50 apkb=536) MONOCYTES ABSOLUTE COUNT (BEAKER) (test 0.54 K/ L 0.00-1.30 pcum=557) EOSINOPHILS ABSOLUTE COUNT (BEAKER) (test 0.01 K/ L 0.00-0.50 enzl=905) BASOPHILS ABSOLUTE COUNT (BEAKER) (test 0.03 K/ L 0.00-0.20 lxgi=401) IMMATURE GRANULOCYTES-RELATIVE PERCENT (BEAKER) 1 % 0-0 (test sszm=6913)
[2019-02-22] MEDS ORDERED: ONDANSETRON 4 MG/2 ML VIAL ONE (19:50)
[2019-02-22] MEDS ORDERED: NA CHLORIDE 0.9% 1,000 ML ONE ×3 (19:50→23:46)
[2019-02-22] MEDS ORDERED: FENTANYL CITR 100 MCG/2 ML ONE ×3 (19:50→23:56)
[2019-02-22 20:32] LABS: Absolute Lymphocytes (CBC) 0.9 K/uL (0.7-4.9); Basophils % 0.6 % (0-1.3); Lymphocytes % 6.4 % (15.3-44.8); MPV 8.3 fL (7.6-11.3)
--- NOTE | 2019-02-22 21:03 | RAD REPORT ---
EXAM DESCRIPTION: RAD - Chest Single View - 02/22/2019 7:48 pm CLINICAL HISTORY: Left leg pain, altered mental status, shortness of breath COMPARISON: November 30 TECHNIQUE: AP portable chest image was obtained 1945 hours . FINDINGS: Right lung field is clear. Left pleural effusion with atelectasis present. Left base infil trate could be masked. Heart and vasculature are normal. No failure or volume overload. No pneumothor ax. No acute bony abnormality seen. No acute aortic findings suspected. IMPRESSION: Small left pleural effusion with left base atelectasis.
[2019-02-22 21:09] LABS: Protime INR 1.73
[2019-02-22 21:25] LABS: ALT/SGPT 29 U/L (12-78); AST/SGOT 36 U/L (15-37); Albumin 2.2 g/dL (3.4-5.0); Alkaline Phosphatase 137 U/L (45-117); BUN Blood Urea Nitrogen 18 mg/dL (7-18); Bicarbonate 30 mmol/L (21-32); Bilirubin Direct 1.1 mg/dL (0-0.2); Bilirubin Total 1.6 mg/dL (0.2-1.0); CKMB Creatine Kinase MB < 1.0 ng/mL (0.3-3.6); Creatine Phosphokinase 59 U/L (26-192); Glucose Level 101 mg/dL (74-106); Lipase 40 U/L (73-393); Potassium 4.2 mmol/L (3.5-5.1); Protein, Total 7.3 g/dL (6.4-8.2); Sodium Level 132 mmol/L (136-145); Troponin (Emerg Dept Use Only) < 0.02 ng/mL (0.0-0.045)
[2019-02-22] MEDS ORDERED: CEFEPIME 2 GM VIAL ONE (21:53)
[2019-02-22] MEDS ORDERED: NA CHLORIDE 0.9% 0 ML ONE (21:53)
[2019-02-22] MEDS ORDERED: NA CHLORIDE 0.9% 100 ML IV ONE (21:55)
--- NOTE | 2019-02-22 22:37 | ER ---
Nurse's Notes [facility] Name: Vivian John Age: 48 yrs Sex: Female : 1970 Arrival Date: 02/22/2019 Time: 18:15 Bed 5 Private MD: Devora Oliva C Diagnosis: Sepsis, unspecified organism;Pain in left knee Presentation: 02/22 18:45 Presenting complaint: states: She has stage 4 bone cancer and her femur was aj1 replaced with a metal vadim. Today she is having severe pain. Patient appears drowsy in triage, opens eyes to verbal stimuli but eye remain shut when she is not being spoken to. Patient appears to be having trouble maintaining conversation. Transition of care: patient was not received from another setting of care. Onset of symptoms was February 22, 2019. Risk Assessment: Do you want to hurt yourself or someone else? Patient reports no desire to harm self or others. Initial Sepsis Screen: Does the patient meet any 2 criteria? HR > 90 bpm. No. Patient's initial sepsis screen is negative. Does the patient have a suspected source of infection? Yes: Skin breakdown/wound. Care prior to arrival: None. 18:45 Method Of Arrival: Wheelchair aj1 18:45 Acuity: CESAR 2 aj1 Triage Assessment: 18:50 General: Appears in no apparent distress. uncomfortable, Behavior is drowsy. Pain: aj1 Complains of pain in left leg Pain currently is 10 out of 10 on a pain scale. Historical: - Allergies: 18:50 Sulfa (Sulfonamide Antibiotics); aj1 - Home Meds: 18:50 Xanax Oral [Active]; methadone 10 mg/mL Oral conc 1 mL every 8 hours [Active]; aj1 oxycodone 10 mg Oral tab 1 tab every 6 hours [Active]; morphine 15 mg Oral tab 1 tab as needed [Active]; gabapentin 300 mg oral cap 3 cap 3 times per day [Active]; tizanidine 4 mg oral tab 1 tab twice daily [Active]; - PMHx: 18:50 stage 4 cancer; aj1 - Immunization history:: Flu vaccine is not up to date. - Social history:: Smoking status: Patient uses tobacco products, smokes two packs cigarettes per day. - Ebola Screening: : Patient denies travel to an Ebola-affected area in the 21 days before illness onset. Screenin:04 Abuse screen: Denies threats or abuse. Nutritional screening: No deficits noted. ea Tuberculosis screening: No symptoms or risk factors identified. Fall Risk None identified. Assessment: 19:20 General: Appears in no apparent distress. Behavior is drowsy. Pain: Complains of pain ea in left leg. Neuro: Level of Consciousness is obeys commands, groggy . Oriented to person, place, time. Cardiovascular: Patient's skin is warm and dry. Respiratory: Airway is patent Respiratory effort is even, unlabored, Respiratory pattern is regular, symmetrical. Derm: Skin is pale, Skin temperature is warm. 21:07 Reassessment: Patient and/or family updated on plan of care and expected duration. Pain ea level reassessed. Pt groggy, responds to verbal stimulus, respirations even and unlabored, chest expansions even and symmetrical. Pt reports pain to left leg. 22:29 Reassessment: Patient and/or family updated on plan of care and expected duration. Pain ea level reassessed. Awaiting for ultrasound results. Pt repositioned in the bed. Reports she feels a little more comfortable. Pt groggy, responds to verbal stimulus, respirations peter and unlabored. Pt on O2 at 2 L per nasal cannula. Family remains at bedside. 23:30 Reassessment: No changes from previously documented assessment. Patient and/or family ea updated on plan of care and expected duration. Pain level reassessed. Report called to Shirlene ARVIZU at [facility]. 02/23 00:18 Reassessment: Patient and/or family updated on plan of care and expected duration. Pain ea level reassessed. Pt responds to verbal stimulus, respirations even and unlabored. Report given to [facility], pt left ED via stretcher per EMS. Pt tolerating well. Vital Signs: 02/22 18:51 BP 126 / 66; Pulse 122; Resp 16; Temp 97.2; Pulse Ox 85% on R/A; Weight 91.63 kg (R); aj1 Height 5 ft. 4 in. (162.56 cm); Pain 10/10; 19:00 BP 112 / 75; Pulse 121; Resp 18; Pulse Ox 97% on R/A; ea 20:45 BP 124 / 87; Pulse 116; Resp 16; Pulse Ox 96% on R/A; ea 22:15 BP 138 / 85; Pulse 124; Resp 18; Temp 97.6; Pulse Ox 95% on 2 lpm NC; ea 23:41 BP 117 / 59; Pulse 117; Resp 18; Pulse Ox 95% on 2 lpm NC; ea 18:51 Body Mass Index 34.67 (91.63 kg, 162.56 cm) aj1 ED Course: 18:15 Patient arrived in ED. as 18:15 Devora Oliva MD is Private Physician. as 18:47 Triage completed. aj1 18:51 Arm band placed on. aj1 19:15 Herrera Hernandez MD is Attending Physician. kdr 19:40 Wanda Lew RN is Primary Nurse. ea 19:47 Chest Single View XRAY In Process Unspecified. EDMS 20:04 Patient has correct armband on for positive identification. Call light in reach. Adult ea w/ patient. 20:15 EKG done, by ED staff, reviewed by Herrera Hernandez MD. ds4 20:20 Inserted saline lock: 20 gauge in left antecubital area, using aseptic technique. Blood ea collected. 22:23 US Extremity Venous Unilateral Ltd In Process Unspecified. EDMS 23:10 No provider procedures requiring assistance completed. Patient transferred, IV remains ea in place. Administered Medications: 20:23 Drug: Zofran 4 mg Route: IVP; Site: left upper arm; ea 21:30 Follow up: Response: No adverse reaction ea 20:24 Drug: NS 0.9% (30 ml/kg) 30 ml/kg Route: IV; Rate: bolus; Site: left antecubital; ea 02/23 00:26 Follow up: Response: No adverse reaction; IV Status: Infusion continued upon transfer; ea IV Intake: 2500ml 02/22 20:24 Drug: fentaNYL (PF) 50 mcg Route: IVP; Site: left antecubital; ea 21:30 Follow up: Response: No adverse reaction; Pain is unchanged, physician notified; RASS: ea Drowsy (-1) 21:55 Drug: fentaNYL (PF) 50 mcg Route: IVP; Site: left antecubital; bb 23:35 Follow up: Response: No adverse reaction; RASS: Drowsy (-1) ea 22:20 Drug: Cefepime 2 grams Route: IVPB; Rate: 200 ml/hr; Infused Over: 30 mins; Site: left ea antecubital; 23:15 Follow up: Response: No adverse reaction; IV Status: Completed infusion ea 23:08 Drug: vancoMYCIN 1.5 grams Route: IVPB; Rate: calculated rate; Site: left antecubital; ea 02/23 00:23 Follow up: Response: No adverse reaction; IV Status: Infusion continued upon transfer ea 02/22 23:57 Drug: fentaNYL (PF) 50 mcg Route: IVP; Site: left antecubital; ea 02/23 00:23 Follow up: Response: No adverse reaction; RASS: Restless (+1) ea Intake: 00:26 IV: 2500ml; Total: 2500ml. ea Outcome: 02/22 22:36 ER care complete, transfer ordered by . kdr 23:30 Instructed on the need for admit, Demonstrated understanding of instructions. ea 23:57 Condition: stable ea 23:57 Transferred by ground EMS to [facility], Transfer form completed. ea 02/23 00:24 Patient left the ED. ea Signatures: Dispatcher [employer] EDReba Baldwin RN RN aj1 Herrera Hernandez MD MD kdr Martinez, Amelia as Radha Valencia RN RN bb Swanson, Donovan ds4 Wanda Lew RN RN ea Corrections: (The following items were deleted from the chart) 02/22 18:51 18:45 Acuity: CESAR 3 aj1 aj1
--- NOTE | 2019-02-22 22:37 | EDPHYS ---
Physician Documentation [facility] Name: Vivian John Age: 48 yrs Sex: Female : 1970 Arrival Date: 02/22/2019 Time: 18:15 Bed 5 Private MD: Devora Oliva C ED Physician Herrera Hernandez HPI: 02/22 20:02 This 48 yrs old Female presents to ER via Wheelchair with complaints of Leg kdr Pain - stage 4 cancer. 20:02 The patient has stage 4 metastatic cancer. Despite recurrent PO pain medications, she kdr continues to be in considerable pain without relief. She is unable to move the right leg due to pain. There is mild to moderate swelling in the right leg. The vadim insertion site is warm and tense and the leg is cool distally - similar temp to the right leg. Currently there is no drainage from the insertion site. 20:27 Family states that she is in excruciating pain and the she has little strength. States kdr that she is weak and they have been trying to get her out to the car since 11:30 today. She appears somnolent but is able to respond timely and appropriately to questions. She states that her knee and thigh are the focus of her pain. She has mildly increased swelling in the distal left extremity compared to left and n/v appears to be intact. Historical: - Allergies: 18:50 Sulfa (Sulfonamide Antibiotics); aj1 - Home Meds: 18:50 Xanax Oral [Active]; methadone 10 mg/mL Oral conc 1 mL every 8 hours [Active]; aj1 oxycodone 10 mg Oral tab 1 tab every 6 hours [Active]; morphine 15 mg Oral tab 1 tab as needed [Active]; gabapentin 300 mg oral cap 3 cap 3 times per day [Active]; tizanidine 4 mg oral tab 1 tab twice daily [Active]; - PMHx: 18:50 stage 4 cancer; aj1 - Immunization history:: Flu vaccine is not up to date. - Social history:: Smoking status: Patient uses tobacco products, smokes two packs cigarettes per day. - Ebola Screening: : Patient denies travel to an Ebola-affected area in the 21 days before illness onset. ROS: 20:27 Constitutional: Negative for fever, chills, and weight loss - generalized weakness and kdr pain Eyes: Negative for injury, pain, redness, and discharge, Neck: Negative for injury, pain, and swelling, Cardiovascular: Negative for chest pain, palpitations, and edema, Respiratory: Negative for shortness of breath, cough, wheezing, and pleuritic chest pain, Abdomen/GI: Negative for abdominal pain, nausea, vomiting, diarrhea, and constipation, Back: Negative for injury and pain, : Negative for injury, bleeding, discharge, and swelling, Skin: Negative for injury, rash, and discoloration, Neuro: Negative for headache, numbness, tingling, and seizure activity. She is generally weak 20:27 MS/extremity: Positive for decreased range of motion, pain, swelling, tenderness, warmth, of the lateral aspect of left thigh, medial aspect of left thigh, left quadriceps and left knee. Exam: 20:27 Constitutional: This is a well developed, well nourished patient who is awake, alert, kdr and in no acute distress. The patinet is sitting in a chair and unable to lay flat or extend her leg due to pain Head/Face: Normocephalic, atraumatic. Eyes: Pupils equal round and reactive to light, extra-ocular motions intact. Lids and lashes normal. Conjunctiva and sclera are non-icteric and not injected. Cornea within normal limits. Periorbital areas with no swelling, redness, or edema. Neck: Trachea midline, no thyromegaly or masses palpated, and no cervical lymphadenopathy. Supple, full range of motion without nuchal rigidity, or vertebral point tenderness. No Meningismus. Chest/axilla: Normal chest wall appearance and motion. Nontender with no deformity. No lesions are appreciated. Cardiovascular: Regular rate and rhythm with a normal S1 and S2. No gallops, murmurs, or rubs. Normal PMI, no JVD. No pulse deficits. Respiratory: Lungs have equal breath sounds bilaterally, clear to auscultation and percussion. No rales, rhonchi or wheezes noted. No increased work of breathing, no retractions or nasal flaring. Abdomen/GI: Soft, non-tender, with normal bowel sounds. No distension or tympany. No guarding or rebound. No evidence of tenderness throughout. Psych: Awake, alert, with orientation to person, place and time. Behavior, mood, and affect are within normal limits. 20:27 Neuro: Orientation: is normal, Mentation: lucid, slow to respond, confused, Sensation: no obvious gross deficits. Vital Signs: 18:51 BP 126 / 66; Pulse 122; Resp 16; Temp 97.2; Pulse Ox 85% on R/A; Weight 91.63 kg (R); aj1 Height 5 ft. 4 in. (162.56 cm); Pain 10/10; 19:00 BP 112 / 75; Pulse 121; Resp 18; Pulse Ox 97% on R/A; ea 20:45 BP 124 / 87; Pulse 116; Resp 16; Pulse Ox 96% on R/A; ea 22:15 BP 138 / 85; Pulse 124; Resp 18; Temp 97.6; Pulse Ox 95% on 2 lpm NC; ea 23:41 BP 117 / 59; Pulse 117; Resp 18; Pulse Ox 95% on 2 lpm NC; ea 18:51 Body Mass Index 34.67 (91.63 kg, 162.56 cm) aj1 MDM: 19:47 Data reviewed: vital signs, nurses notes, lab test result(s), radiologic studies. kdr Counseling: I had a detailed discussion with the patient and/or guardian regarding: the historical points, exam findings, and any diagnostic results supporting the discharge/admit diagnosis, lab results, radiology results. ED course: The patient was unable to lay flat for the femur x-ray. 22:36 Patient medically screened. [facility] 02/22 19:28 Order name: Basic Metabolic Panel; Complete Time: 21:37 kdr 02/22 19:28 Order name: Blood Culture Adult (2) [facility] 02/22 19:28 Order name: CBC with Diff; Complete Time: 21:13 kdr 02/22 19:28 Order name: Ckmb; Complete Time: 21:37 kdr 02/22 19:28 Order name: CPK; Complete Time: 21:37 kdr 02/22 19:28 Order name: Lactate; Complete Time: 21:13 kdr 02/22 19:28 Order name: LFT's; Complete Time: 21:37 kdr 02/22 19:28 Order name: Lipase; Complete Time: 21:37 kdr 02/22 19:28 Order name: Procalcitonin; Complete Time: 21:37 [facility] 02/22 19:28 Order name: Protime (+inr); Complete Time: 21:13 kdr 02/22 19:28 Order name: Ptt, Activated; Complete Time: 21:13 kdr 02/22 19:28 Order name: Troponin (emerg Dept Use Only); Complete Time: 21:37 kdr 02/22 19:28 Order name: Chest Single View XRAY; Complete Time: 21:13 kdr 02/22 19:28 Order name: Accucheck; Complete Time: 22:21 kdr 02/22 19:28 Order name: Cardiac monitoring; Complete Time: 20:19 kdr 02/22 19:28 Order name: EKG - Nurse/Tech; Complete Time: 20:19 kdr 02/22 19:28 Order name: IV Saline Lock - Large Bore; Complete Time: 20:25 kdr 02/22 19:28 Order name: Labs collected and sent; Complete Time: 20:25 kdr 02/22 19:30 Order name: US Extremity Venous Unilateral Ltd kdr 02/22 23:55 Order name: Lactate Sepsis 2 HR Follow-up EDWI 02/22 19:28 Order name: O2 Per Protocol; Complete Time: 20:25 kdr 02/22 19:28 Order name: O2 Sat Monitoring; Complete Time: 20:25 kdr Administered Medications: 20:23 Drug: Zofran 4 mg Route: IVP; Site: left upper arm; ea 21:30 Follow up: Response: No adverse reaction ea 20:24 Drug: NS 0.9% (30 ml/kg) 30 ml/kg Route: IV; Rate: bolus; Site: left antecubital; ea 02/23 00:26 Follow up: Response: No adverse reaction; IV Status: Infusion continued upon transfer; ea IV Intake: 2500ml 02/22 20:24 Drug: fentaNYL (PF) 50 mcg Route: IVP; Site: left antecubital; ea 21:30 Follow up: Response: No adverse reaction; Pain is unchanged, physician notified; RASS: ea Drowsy (-1) 21:55 Drug: fentaNYL (PF) 50 mcg Route: IVP; Site: left antecubital; bb 23:35 Follow up: Response: No adverse reaction; RASS: Drowsy (-1) ea 22:20 Drug: Cefepime 2 grams Route: IVPB; Rate: 200 ml/hr; Infused Over: 30 mins; Site: left ea antecubital; 23:15 Follow up: Response: No adverse reaction; IV Status: Completed infusion ea 23:08 Drug: vancoMYCIN 1.5 grams Route: IVPB; Rate: calculated rate; Site: left antecubital; ea 02/23 00:23 Follow up: Response: No adverse reaction; IV Status: Infusion continued upon transfer ea 02/22 23:57 Drug: fentaNYL (PF) 50 mcg Route: IVP; Site: left antecubital; 02/23 00:23 Follow up: Response: No adverse reaction; RASS: Restless (+1) ea Disposition: 02/22/19 22:36 Transfer ordered to Other Acute Care Facility. Diagnosis are Sepsis, unspecified organism, Pain in left knee. - Reason for transfer: Higher level of care. - Accepting physician is ARABELLA ALMANZA. - Condition is Fair. - Problem is an acute exacerbation. - Symptoms are unchanged. Signatures: Dispatcher [employer] EDReba Baldwin RN RN aj1 Herrera Hernandez MD MD kdr Doretha Jimenez, EDITOR NEWSPAPER-C EDITOR NEWSPAPER-Csnw Radha Valencia RN RN Wanda Harry RN RN ea Corrections: (The following items were deleted from the chart) 02/22 23:35 23:09 LACTATE+C.LAB.BRZ ordered. [facility] 02/23 00:24 02/22 22:36 02/22/2019 22:36 Transfer ordered to Other Acute Care Facility. Diagnosis ea is Sepsis, unspecified organism; Pain in left knee. Reason for transfer: Higher level of care. Accepting physician is ARABELLA ALMANZA. Condition is Fair. Problem is an acute exacerbation. Symptoms are unchanged. kdr
[2019-02-22] MEDS ORDERED: NA CHLORIDE 0.9% 500 ML ONE (23:00)
[2019-02-22] MEDS ORDERED: VANCOMYCIN 1 GM/VIAL ONE (23:00)
[2019-02-23 00:32] VITALS: TEMP 97.6; O2SAT 95
[2019-02-23 00:34] VITALS: BP 117/59
--- NOTE | 2019-02-23 08:15 | RAD REPORT ---
EXAM DESCRIPTION: US - Extremity Venous Uni Ltd - 02/22/2019 10:22 pm CLINICAL HISTORY: Left leg pain, history of femoral vadim placement COMPARISON: None. TECHNIQUE: Real-time sonographic evaluation of the right lower extremity deep venous systems was per formed. FINDINGS: Normal compressibility, flow augmentation, phasic flow and spontaneous flow are identified in the right lower extremity common femoral, superficial femoral, popliteal and posterior tibial vei ns. No intraluminal filling defects seen. IMPRESSION: No DVT in the right lower extremity.
--- NOTE | 2019-02-23 18:36 | EKG ---
Test Date: 2019-02-22 Test Time: 19:58:16 Photovoltaic Installation Technician: EDWARDO MEASUREMENT RESULTS: Intervals: Rate: 126 OK: 130 QRSD: 80 QT: 276 QTc: 399 [place]: P: 63 OK: 130 QRS: 73 T: 39 INTERPRETIVE STATEMENTS: Sinus tachycardia Otherwise normal ECG No previous ECG available for comparison Electronically Signed On 02-23-19 18:36:07 LEATHER STITCHER by Viraj Agee
== END 2019-02-23 00:24 ==
LOC: ER 18:14
DX: C41.9 Malignant neoplasm of bone and articular cartilage, unspecified (principal); A41.9 Sepsis, unspecified organism; F17.210 Nicotine dependence, cigarettes, uncomplicated; Z88.2 Allergy status to sulfonamides
CPT/HCPCS: 93005; 87040 ×2; 85025; 80048; 36415; 82550; 85610; 80076; 83605 ×2; 85730; 84484; 82553; 83690; 84145; 71045; 93971; 99285; J3010 ×3; J0692; J7040; J7030 ×3; J2405